=== PATIENT | male | born 1980 | race Caucasian/White ===

== ENCOUNTER 2020-02-29 17:33 | Emergency (ER) | payer BC, OTHER, SELFPAY ==
--- NOTE | 2020-02-29 17:39 | ED.GENADULT ---
HPI - General Adult General Chief complaint: Upper Respiratory Infection Stated complaint: low energy Time Seen by Provider: 02/29/20 17:38 Source: patient Mode of arrival: ambulatory Limitations: no limitations History of Present Illness HPI narrative: 39-year-old male patient presents to the [facility] with complaints of extreme fatigue that started yesterday. Patient also complaining of some hot and cold chills along with some sinus pressure and congestion. Denies any fevers, body aches or chills. Denies any chest pain. Patient states she he has had mild shortness of breath. Denies any abdominal pain, nausea, vomiting or diarrhea. Patient unsure if he got a flu shot this year. Patient denies being around anyone with Covid that he is aware of. Related Data Home Medications Medication Instructions Recorded Confirmed fluoxetine [Prozac] 4 mg PO DAILY 03/18/19 03/18/19 buspirone 5 mg PO BID 02/29/20 02/29/20 Allergies Allergy/AdvReac Type Severity Reaction Status Date / Time No Known Allergies Allergy Mild Unverified 03/18/19 17:47 Review of Systems Review of Systems: Narrative: CONSTITUTIONAL: Denies fever, positive chills, and sweats. Positive fatigue EYES: Denies visual changes, redness, or discharge. ENT: Positive rhinorrhea, congestion, denies sore throat, or otalgia. CARDIOVASCULAR: Denies chest pain, palpitations, or edema. RESPIRATORY: Denies cough or dyspnea. GASTROINTESTINAL: Denies abdominal pain, nausea, vomiting, or diarrhea. GENITOURINARY: Denies dysuria or hematuria. SKIN: Denies rash or itching. MUSCULOSKELETAL: Denies back pain, joint pain, or myalgia. NEUROLOGIC: Denies headache, numbness, or weakness. PSYCHIATRIC: Denies anxiety or depression. [facility] Past Medical History Medical History Anxiety Depression GI bleed History of pneumonia Inguinal hernia PTSD (post-traumatic stress disorder) Surgical History Surgical History H/O inguinal hernia repair Social History Social History Smoking packs per day: 0.75 Smoking cigarettes per day: 15.0 Smoking status: Current every day smoker Tobacco type: cigarettes Comments At the time of my signature I agree with nursing past medical history, surgical, social, and family history. There is no relevant family history pertinent to the presenting complaint. Exam Narrative: Exam Narrative: GENERAL: Well-appearing, well-nourished, and in no acute distress. HEAD: Normocephalic, atraumatic. EYES: PERRLA and EOMI. ENT: Nares clear, no rhinorrhea or epistaxis. Mucous membranes moist. Posterior pharynx with no erythema, tonsillar Dulce Maria, exudates or lesions present. Bilateral TMs are clear no erythema or foreign bodies to the canal. NECK: Supple. No lymphadenopathy CHEST: Clear to auscultation. No respiratory distress. Patient able talk in clear complete sentences. No tripoding noted. HEART: Regular rate and rhythm. No murmur heard. Normal peripheral pulses. ABDOMEN: Soft, nontender, nondistended, normal active bowel sounds. EXTREMITIES: Normal range of motion. No edema. SKIN: Warm, dry, no rash. NEURO: No focal deficits. Alert and oriented x3. Course Reevaluation(s) Reevaluation #1: Reevaluated patient and notified him that his flu today is negative. Discussed with him that we sent the order for his Covid test over to the hospital that they should be in contact with him most likely sometime tomorrow to schedule this test. Discussed with him is very important to stay isolated until he receives his test result and is recommended by the CDC that you isolate for 10 days from the onset of symptoms regardless of negative or positive test results. Patient verbalized understanding denies any other questions or concerns at this time. Date: 02/29/20 Time: 18:20 Vital Signs Vital signs: V
[2020-02-29 17:42] VITALS: BP 153/106; PULSE 95; RESP 20; TEMP 36.6; O2SAT 98
[2020-02-29 18:24] VITALS: BP 131/81; PULSE 73; RESP 16; TEMP 37.2; O2SAT 100
== END 2020-02-29 18:26 | disposition home or self-care (01) ==
PROVIDERS: Emergency Provider Nurse Practitioner Family
DX: Z20.828 Contact with and (suspected) exposure to other viral communicable diseases (principal); R53.83 Other fatigue; F17.210 Nicotine dependence, cigarettes, uncomplicated; F41.9 Anxiety disorder, unspecified; F32.9 Major depressive disorder, single episode, unspecified
CPT/HCPCS: 87804; 99213; G0463

== ENCOUNTER 2020-03-01 08:18 | Outpatient (NON) | payer BC, OTHER, SELFPAY ==
[2020-03-01 18:19] LABS: SARS-CoV-2 RNA PCR Positive
== END 2020-03-01 08:19 ==
PROVIDERS: Visit Provider Nurse Practitioner Family
DX: U07.1 COVID-19 (principal)
CPT/HCPCS: 87635; C9803; U0003

== ENCOUNTER 2020-08-22 17:53 | Emergency (ER) | payer OTHER, SELFPAY ==
[2020-08-22 18:05] VITALS: BP 137/95; PULSE 99; RESP 18; TEMP 36.6; O2SAT 99
--- NOTE | 2020-08-22 18:17 | ECG_ITS ---
Measurements Intervals [place] Rate: 80 P: 47 [place]: 149 QRS: -11 QRSD: 94 T: 34 QT: 335 QTc: 389 Interpretive Statements SINUS RHYTHM POSSIBLE LEFT ATRIAL ENLARGEMENT BASELINE ARTIFACT- I, II, III, AVL, AVF BORDERLINE ECG Electronically Signed On 08-23-2020 8:13:54 CDT by Shimon Romero D.O.
--- NOTE | 2020-08-22 18:23 | ED.GENADULT ---
HPI - General Adult General Chief complaint: Unspecified Stated complaint: pain in rib Source: patient and RN notes reviewed Mode of arrival: ambulatory History of Present Illness HPI narrative: This is a 40-year-old male with a presented to urgent care with complaints of left side rib pain. According to patient he developed left-sided rib pain Saturday patient notes that he took over the counter pain medication with no relief. patient notes ever since he took the Pfizer vaccine 1 month ago he has been having a metallic taste in his mouth. He also notes that he has previously had covid back in February. Patient denies any trauma or injury to his left side. He notes the only thing that he did different was drive from here to [place] the day before he developed left rib pain. He noted he then went to sleep and woke up with left rib pain. Patient describes the pain as internal muscle tightness with occasional burning to his rib cage .the patient denies SOB, CP, palpitation, extremity numbness, lightheadedness, dizziness, constipation, diarrhea, chills, any radiating pain or fever. Related Data Allergies Allergy/AdvReac Type Severity Reaction Status Date / Time No Known Allergies Allergy Mild Verified 08/22/20 17:55 Review of Systems Review of Systems: Narrative: A 14 organ system Review of Systems was performed and pertinent positives included in the HPI, otherwise remaining ROS is negative. PMFSH Past Medical History Medical History Anxiety Depression GI bleed History of pneumonia Inguinal hernia PTSD (post-traumatic stress disorder) Surgical History Surgical History H/O inguinal hernia repair Social History Social History Smoking packs per day: 0.75 Smoking cigarettes per day: 15.0 Smoking status: Current every day smoker Tobacco type: cigarettes Gender identity (if verbalized by the patient): Male Exam Narrative: Exam Narrative: GENERAL: This is a well-nourished, well-developed patient, in no apparent distress. HEAD: normocephalic, atraumatic. EYES: PERRL. Sclera clear/white. Vision is grossly intact. EARS: External ears normal, auditory canals clear and without drainage, TMs normal without perforation. Hearing grossly intact. NOSE: External nose normal with no obvious nasal discharge, nares without redness, no rhinorrhea. THROAT: Mucous membranes moist, posterior pharynx clear. NECK: Neck supple, non-tender without lymphadenopathy, masses or thyromegaly. CARDIOVASCULAR: Regular rate and rhythm without murmurs, gallops, or rubs. RESPIRATORY: Clear to auscultation. Breath sounds equal bilaterally. No wheezes, rales, or rhonchi. GASTROINTESTINAL: Abdomen soft, non-tender, nondistended. Bowel sounds are active. No hepato-splenomegaly, or palpable masses. No guarding. SKIN: warm, intact with no suspicious lesions or rash, good texture and turgor. NEURO: awake, alert, and oriented to person, place and time. There were no obvious focal neurologic abnormalities. Steady gait EXTREMITIES: Normal range of motion. No edema. No calf tenderness. Negative Homans sign bilaterally. BACK: Nontender without deformity or crepitance. No flank tenderness. Course Course Emergency Course: Patient will receive [place] with Flexeril and diclofenac. Vital Signs Vital signs: Vital Signs Temperature 97.8 F 08/22/20 18:05 Pulse Rate 99 08/22/20 18:05 Respiratory Rate 18 08/22/20 18:05 Blood Pressure 137/95 H 08/22/20 18:05 Pulse Oximetry 99 08/22/20 18:05 Temperature 97.8 F 08/22/20 18:05 Pulse Rate 99 08/22/20 18:05 Respiratory Rate 18 08/22/20 18:05 Blood Pressure 137/95 H 08/22/20 18:05 Pulse Oximetry 99 08/22/20 18:05 Medical Decision Making Vital Signs Vital Signs: Vital Signs Temperature 97.8 F 08/22/20 18:05 Pulse Ra
== END 2020-08-22 18:24 | disposition home or self-care (01) ==
PROVIDERS: Emergency Provider Nurse Practitioner
DX: S23.41XA Sprain of ribs, initial encounter (principal); S29.019A Strain of muscle and tendon of unspecified wall of thorax, initial encounter; X58.XXXA Exposure to other specified factors, initial encounter; F17.210 Nicotine dependence, cigarettes, uncomplicated; F41.9 Anxiety disorder, unspecified
CPT/HCPCS: 93005; 99213; G0463

== ENCOUNTER 2020-08-24 22:07 | Emergency (ER) | payer OTHER, BC, SELFPAY ==
--- NOTE | ~2020-08-24 | CT_ITS ---
EXAMINATION: CT abdomen pelvis w con DATE: 08/24/2020 23:55 INDICATION: Left lower quadrant abdominal pain radiating to back TECHNIQUE: Computed tomography (CT) of the abdomen and pelvis was performed with 100 cc Omnipaque 350 intravenous contrast. Automated exposure control and iterative reconstruction technique were employe d. Exam dose: 1534.40 mGy-cm total exam DLP. COMPARISON: None. FINDINGS: There are scattered reticular and groundglass infiltrates and/atelectasis in the lower lung zones, left greater than right, which may be infectious. Normal heart size. No pericardial or pleural effusion. The liver, gallbladder, bile ducts, spleen, pancreas and pancreatic duct are unremarkable. Normal morphology of the adrenal glands. No renal mass lesion. No urinary tract calculus or hydroureteronephrosis. Normal caliber of the abdominal aorta. No intraperitoneal or retroperitoneal or pelvic mass lesion or adenopathy or ascites. Small fat-containing right inguinal hernia. No fat-containing left inguinal hernia. The urinary bladder and prostate gland appear unremarkable. Normal appendix. No bowel obstruction or bowel wall thickening, pneumatosis or intraperitoneal free a ir. Small fat-containing inguinal hernia. Included skeletal structures are unremarkable. IMPRESSION: Bilateral lower lung infiltrates, left greater than right; consider pneumonia Small fat-containing right inguinal hernia Reviewed, dictated and finalized at [facility]. Reviewed, dictated and finalized at [facility]. IMPRESSION: Bilateral lower lung infiltrates, left greater than right; conside r pneumonia Small fat-containing right inguinal hernia
[2020-08-24 22:15] VITALS: BP 131/96; PULSE 87; RESP 14; TEMP 36.8; O2SAT 98
--- NOTE | 2020-08-24 22:21 | ECG_ITS ---
Measurements Intervals [place] Rate: 82 P: 34 NE: 145 QRS: -3 QRSD: 88 T: 1 QT: 343 QTc: 403 Interpretive Statements SINUS RHYTHM CONSIDER INFERIOR INFARCT, AGE INDETERMINATE ABNORMAL ECG Electronically Signed On 08-25-2020 9:47:15 CDT by Shimon Romero D.O.
[2020-08-24 22:36] LABS: Basophils Percent Auto 0.4 % (0.2-1.2); Eosinophils Absolute Auto 0.2 K/mm3 (0-0.3); Eosinophils Percent Auto 2.6 % (0-4.4); Hematocrit 46.7 % (42.0-52.0); Hemoglobin 16.1 g/dL (14.0-18.0); Immature Granulocyte Absolute 0.03 K/mm3 (0.00-0.031); Immature Granulocyte Percent A 0.4 % (0-0.5); Lymphocytes Absolute Auto 2.26 K/mm3 (0.9-3.2); Lymphocytes Percent Auto 31.1 % (18.3-44.2); Mean Corpuscular HGB Conc 34.5 g/dl (32-36); Mean Corpuscular Hemoglobin 30.8 pg (26-34); Mean Corpuscular Volume 89.5 fl (80-100); Mean Platelet Volume 10.9 fl (7.4-10.4); Monocytes Absolute Auto 0.3 K/mm3 (0.1-0.6); Monocytes Percent Auto 4.7 % (2.6-8.5); Neutrophils Absolute Auto 4.4 K/mm3 (1.3-6.7); Neutrophils Percent Auto 60.8 % (45.5-73.1); Platelet Count Result 190 k/mm3 (150-375); Red Blood Count 5.22 M/mm3 (4.6-6.20); Red Cell Distribution Width 12.9 % (11.5-14.5); White Blood Count 7.3 K/mm3 (4.5-10.0)
[2020-08-24 22:48] LABS: Alanine Aminotransferase 44 U/L (4-50); Albumin Level 4.8 g/dL (3.5-5.1); Alkaline Phosphatase 45 U/L (38-126); Anion Gap 10 mmol/L (8-16); Aspartate Amino Transferase 38 U/L (17-59); Bilirubin,Total 0.3 mg/dL (0.2-1.3); Blood Urea Nitrogen 12 mg/dL (9-20); Calcium 9.5 mg/dL (8.4-10.2); Carbon Dioxide 29 mmol/L (22-30); Chloride 101 mmol/L (98-107); Estimated CRCL calculation 107 ml/min; Estimated Glomerular Filt Rate > 60; Glucose 100 mg/dL (75-110); Lipase 34 U/L (23-300); Potassium 3.8 mmol/L (3.4-5.0); Sodium 140 mmol/L (137-145)
[2020-08-24 23:00] LABS: Troponin I < 0.012 ng/mL (0.000-0.034)
[2020-08-24 23:27] LABS: Add Urine Microscopic? YES; Appearance Urine Clear (Clear); Bacteria Urine Trace /hpf; Bilirubin Urine Negative (Negative); Blood Urine 2+ (Negative); Color Urine Yellow (Yellow); Glucose Urine UA Negative (Negative); Ketones Urine Negative (Negative); Leukocyte Esterase Ur Negative LEU/UL (Negative); Mucus Urine Few /lpf; Nitrate Urine Negative (Negative); Protein Urine 1+ mg/dL (Negative); Specific Grav Ur 1.023 (1.001-1.035); Urobilinogen Urine Negative mg/dL (<2.0); WBC Urine 0-3 /hpf
--- NOTE | 2020-08-25 00:37 | ED.ABDPAIN ---
HPI - Abdominal Pain General Chief Complaint: Abdominal Pain Stated Complaint: swelling and burning under rib cag Time Seen by Provider: 08/24/20 22:53 Source: patient Mode of arrival: ambulatory Limitations: no limitations History of Present Illness HPI narrative: 40-year-old with a history of anxiety, depression here with complaints of left upper quadrant pain since last 1 day. Patient states that he feels like a mass in the left upper abdomen. He denies any nausea or vomiting. No history of fever or chills. No history of trauma. MD elicited complaint: abdominal pain Pertinent past history: none Onset (ago): day(s) (1) Pain Consistency: constant Location: [facility] Related Data Allergies Allergy/AdvReac Type Severity Reaction Status Date / Time No Known Allergies Allergy Mild Verified 08/22/20 17:55 Review of Systems Review of Systems: All systems reviewed & are unremarkable except as noted in HPI and below Constitutional: Constitutional: Reports no additional constitutional complaints Eyes: Eyes: Reports no additional eye complaints ENT: Reports system reviewed and no additional complaints, except as documented Cardiovascular: Cardiovascular: Reports no additional cardiovascular complaints Respiratory: Respiratory: Reports no additional respiratory complaints Gastrointestinal: Gastrointestinal: Reports as per HPI Musculoskeletal: Musculoskeletal: Reports no additional musculoskeletal complaints PMFSH Past Medical History Medical History Anxiety Depression GI bleed History of pneumonia Inguinal hernia PTSD (post-traumatic stress disorder) Surgical History Surgical History H/O inguinal hernia repair Social History Social History Smoking packs per day: 0.75 Smoking cigarettes per day: 15.0 Smoking status: Current every day smoker Tobacco type: cigarettes Gender identity (if verbalized by the patient): Male Exam Narrative: Exam Narrative: GENERAL: Well-appearing, well-nourished, and in no acute distress. HEAD: Normocephalic, atraumatic. EYES: PERRLA and EOMI. NECK: Supple. CHEST: Clear to auscultation. No respiratory distress. HEART: Regular rate and rhythm. No murmur heard. Normal peripheral pulses. ABDOMEN: Soft, nontender, nondistended, normal active bowel sounds. EXTREMITIES: Normal range of motion. No edema. SKIN: Warm, dry, no rash. NEURO: No focal deficits. Alert and oriented x3. PSYCH: Normal mood and affect. Course Course Emergency Course: Patient presently in no distress. I discussed all the lab work, CT findings with the patient and family. Vital Signs Vital signs: Vital Signs Temperature 36.8 C 08/24/20 22:15 Pulse Rate 87 08/24/20 22:15 Respiratory Rate 14 08/24/20 22:15 Blood Pressure 131/96 H 08/24/20 22:15 Pulse Oximetry 98 08/24/20 22:15 Temperature 36.8 C 08/24/20 22:15 Pulse Rate 87 08/24/20 22:15 Respiratory Rate 14 08/24/20 22:15 Blood Pressure 131/96 H 08/24/20 22:15 Pulse Oximetry 98 08/24/20 22:15 MDM - Abdominal Pain Differential Diagnosis Differential diagnosis: Likely abdominal pain, constipation, diverticulitis and small bowel obstruction Lab Data Result diagrams: 08/24/20 22:27 08/24/20 22:27 Labs: Lab Results 08/24/20 08/24/20 08/24/20 Range/Units 22:27 22:27 23:15 WBC 7.3 (4.5-10.0) K/mm3 RBC 5.22 (4.6-6.20) M/mm3 Hgb 16.1 (14.0-18.0) g/dL Hct 46.7 (42.0-52.0) % MCV 89.5 (80-100) fl MCH 30.8 (26-34) pg MCHC 34.5 (32-36) g/dl RDW 12.9 (11.5-14.5) % Plt Count 190 (150-375) k/mm3 MPV 10.9 H (7.4-10.4) fl Immature Gran % (Auto) 0.4 (0-0.5) % Neut % (Auto) 60.8 (45.5-73.1) % Lymph % (Auto) 31.1 (18.3-44.2) % [place] % (Auto) 4.7 (2.6-8.5) % Eos % (Auto
[2020-08-25 00:43] VITALS: BP 128/89; PULSE 78; RESP 16; O2SAT 98
== END 2020-08-25 00:43 | disposition home or self-care (01) ==
PROVIDERS: Emergency Provider Family Medicine
DX: R10.12 Left upper quadrant pain (principal); F17.210 Nicotine dependence, cigarettes, uncomplicated; R94.31 Abnormal electrocardiogram [ECG] [EKG]
CPT/HCPCS: 36415; 74177; 80053; 81001; 83690; 84484; 85025; 93005; 99284; Q9967

== ENCOUNTER 2020-08-29 10:58 | Emergency (ER) | payer OTHER, BC, SELFPAY ==
[2020-08-29 11:16] VITALS: BP 137/99; PULSE 113; RESP 18; TEMP 36.3; O2SAT 99
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
== END 2020-08-29 11:57 | disposition home or self-care (01) ==
PROVIDERS: Emergency Provider Nurse Practitioner
DX: B02.9 Zoster without complications (principal); F17.210 Nicotine dependence, cigarettes, uncomplicated
CPT/HCPCS: 99213; G0463

== ENCOUNTER 2020-12-20 16:03 | Emergency (ER) | payer OTHER, BC, SELFPAY ==
[2020-12-20 16:22] VITALS: BP 133/99; PULSE 95; RESP 18; TEMP 36.8; O2SAT 99
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
== END 2020-12-20 16:50 | disposition left against medical advice (07) ==
PROVIDERS: Emergency Provider Nurse Practitioner Family
DX: S09.90XA Unspecified injury of head, initial encounter (principal); V43.52XA Car driver injured in collision with other type car in traffic accident, initial encounter; F17.210 Nicotine dependence, cigarettes, uncomplicated; F41.9 Anxiety disorder, unspecified; F32.9 Major depressive disorder, single episode, unspecified; F43.10 Post-traumatic stress disorder, unspecified
CPT/HCPCS: 99212; G0463

== ENCOUNTER 2021-08-30 12:41 | Emergency (ER) | payer BC, SELFPAY ==
[2021-08-30 12:45] VITALS: BP 126/98; PULSE 85; RESP 16; TEMP 36.8; O2SAT 98
--- NOTE | 2021-08-30 13:07 | ED.URI ---
HPI - URI/Sore Throat General Chief Complaint: Upper Respiratory Infection Stated Complaint: Congestion,Throat Irritation Time Seen by Provider: 08/30/21 13:07 History of Present Illness HPI Narrative: Jayce Shoemaker is a 41 yo male with a PMH of depression and PTSD comes to express care with 3 days of cough and congestion with sore throat x3 days. He has been vaccinated for COVID has had COVID and thinks he has just a bad summer cold Related Data Allergies Allergy/AdvReac Type Severity Reaction Status Date / Time No Known Allergies Allergy Mild Verified 08/30/21 12:46 Review of Systems Review of Systems: CONSTITUTIONAL: Denies fever, chills, sweats. EYES: Denies visual changes, redness, discharge. ENT: Has rhinorrhea, has congestion, has sore throat, otalgia. CARDIOVASCULAR: Denies chest pain, palpitations, edema. RESPIRATORY: Denies dyspnea, wheezing, cough GASTROINTESTINAL: Denies abdominal pain, nausea, vomiting, diarrhea. GENITOURINARY: Denies dysuria, hematuria, abnormal discharge SKIN: Denies rash or itching. NEUROLOGIC: Denies numbness, or focal weakness. PSYCHIATRIC: Denies anxiety or depression. PMFSH Past Medical History Medical History Anxiety Depression GI bleed History of pneumonia Inguinal hernia PTSD (post-traumatic stress disorder) Surgical History Surgical History H/O inguinal hernia repair Social History Social History Smoking packs per day: 0.75 Smoking cigarettes per day: 15.0 Smoking status: Current every day smoker Tobacco type: cigarettes Gender identity (if verbalized by the patient): Male Comments At time of signature, I agree with nursing past medical, surgical, social and family history. There is no relevant family history pertinent to the presenting complaint. Exam Narrative: GENERAL: This is a well-nourished, well-developed patient, in mild distress. HEAD: normocephalic, atraumatic. EYES: Sclera clear/white. Vision is grossly intact. EARS: External ears normal, auditory canals erythema and without drainage, fluid behind TMs. Hearing grossly intact. NOSE: External nose normal without nasal discharge, nares without redness, has rhinorrhea. THROAT: Mucous membranes moist, posterior pharynx erythema with no exudate NECK: Neck supple, non-tender CARDIOVASCULAR: Regular rate and rhythm without murmurs, gallops, or rubs. RESPIRATORY: Clear to auscultation. Breath sounds equal bilaterally. No wheezes, rales, or rhonchi. GASTROINTESTINAL not done SKIN: warm, intact with no suspicious lesions or rash, good texture and turgor. NEURO: awake, alert, and oriented to person, place and time. There were no obvious focal neurologic abnormalities. Steady gait EXTREMITIES: Normal range of motion. BACK: Nontender without deformity Course Course Emergency Course: Patient comes with complaints of cough upper respiratory symptoms of sinus congestion coughing at night, states he has been taking Mucinex but symptoms have not improved also has sore throat Strep test done which was negative Started on steroids, Tesmoyon Jazes, should continue with Mucinex and take Zyrtec in the morning Level of Care: Express Care Visit Vital Signs Vital signs: Vital Signs Temperature 98.3 F 08/30/21 12:45 Pulse Rate 85 08/30/21 12:45 Respiratory Rate 16 08/30/21 12:45 Blood Pressure 126/98 H 08/30/21 12:45 Pulse Oximetry 98 08/30/21 12:45 Oxygen Delivery Room Air 08/30/21 12:45 Temperature 98.3 F 08/30/21 12:45 Pulse Rate 85 08/30/21 12:45 Respiratory Rate 16 08/30/21 12:45 Blood Pressure 126/98 H 08/30/21 12:45 Pulse Oximetry 98 08/30/21 12:45 Oxygen Delivery Room Air 08/30/21 12:45 MDM - URI/Sore Throat Differential Diagnosis Differential diagnosis: Likely upper respiratory infection,
== END 2021-08-30 13:27 | disposition home or self-care (01) ==
PROVIDERS: Emergency Provider Nurse Practitioner
DX: J06.9 Acute upper respiratory infection, unspecified (principal); F17.210 Nicotine dependence, cigarettes, uncomplicated
CPT/HCPCS: 87081; 87880; 99213; G0463

== ENCOUNTER 2022-03-14 17:15 | Emergency (ER) | payer OTHER, BC, SELFPAY ==
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
[2022-03-14 17:34] VITALS: BP 150/113; PULSE 92; RESP 20; TEMP 36.9; O2SAT 99
== END 2022-03-14 18:04 | disposition home or self-care (01) ==
PROVIDERS: Emergency Provider Nurse Practitioner
DX: M54.9 Dorsalgia, unspecified (principal); V44.5XXA Car driver injured in collision with heavy transport vehicle or bus in traffic accident, initial encounter; F17.210 Nicotine dependence, cigarettes, uncomplicated
CPT/HCPCS: 99213; G0463

== ENCOUNTER 2024-12-05 19:15 | Emergency (ER) | payer OTHER, SELFPAY ==
[2024-12-05 19:26] VITALS: BP 151/104; PULSE 87; RESP 18; TEMP 36.7; O2SAT 98
--- NOTE | 2024-12-05 20:00 | ED.EXTPRO ---
HPI - Extremity Problem General Chief complaint: Extremity Injury, Upper Stated complaint: R pain in hand that goes up to arm Time Seen by Provider: 12/05/24 19:35 Source: patient Mode of arrival: ambulatory Limitations: no limitations History of Present Illness HPI Narrative: Jayce is a 44-year-old male patient presenting to the clinic today with complaints of right wrist/hand pain x3 days. He reports pain originates in the wrist and radiates up the arm. States it is an achy pain. Rates his pain a 4-6/10. Has been taking ibuprofen for the pain without much relief. Denies any injury of the left hand or wrist. Denies any repetitive motions of the left hand or wrist. Patient is currently retired. History bulging disc and cervical spine. Has a neck implant to C3. Denies any neck injury or pain currently. Related Data Home Medications ?Medication ?Instructions ?Recorded ?Confirmed ?Last Taken ?Type duloxetine 60 mg capsule,delayed mg PO 12/05/24 Unknown History release fluoxetine 10 mg capsule mg 12/05/24 Unknown History quetiapine 100 mg tablet mg 12/05/24 Unknown History Allergies Allergy/AdvReac Type Severity Reaction Status Date / Time No Known Allergies Allergy Mild Verified 03/14/22 17:29 Review of Systems Review of Systems: Pertinent positives per HPI. Patient denies any fever, chills, rash, headache, visual changes, dizziness, cough, runny nose, sore throat, shortness of breath, chest pain, palpitations, nausea, vomiting, diarrhea, constipation, abdominal pain, or any urinary issues. [facility] Past Medical History Medical History History of pneumonia PTSD (post-traumatic stress disorder) Anxiety Depression Inguinal hernia GI bleed Surgical History Surgical History H/O inguinal hernia repair Social History Social History Smoking packs per day: 0.75 Smoking cigarettes per day: 15.0 Smoking status: Current every day smoker Tobacco type: cigarettes Gender identity (if verbalized by the patient): Male Comments At the time of my signature, I reviewed and agree with the nursing past medical, surgical, social, and family history. There is no relevant family history pertinent to the patient complaint. Exam Narrative: General: Well-developed, well nourished, in no apparent distress Head: Normocephalic, atraumatic. Cardio: Regular rate and rhythm, s1 and s2 normal, no murmur appreciated. Resp: Clear to auscultation bilaterally, no rhonchi, rales, wheezing or rubs. Musculoskeletal: No deformity, tender to palpation over the right palm/hand/wrist, positive Phalen's test, negative Tinel's test, negative Padma test, grossly normal range of motion, hand strength strong and equal, peripheral pulse strong, no edema, no cyanosis, normal gait and station Course Course Emergency Course: Portions of this record may have been created with voice recognition software. Level of Care: Express Care Visit Vital Signs Vital signs: Vital Signs Temperature 36.7 C 12/05/24 19:26 Pulse Rate 87 12/05/24 19:26 Respiratory Rate 18 12/05/24 19:26 Blood Pressure 151/104 H 12/05/24 19:26 Pulse Oximetry 98 12/05/24 19:26 Oxygen Delivery Room Air 12/05/24 19:26 Temperature 36.7 C 12/05/24 19:26 Pulse Rate 87 12/05/24 19:26 Respiratory Rate 18 12/05/24 19:26 Blood Pressure 151/104 H 12/05/24 19:26 Pulse Oximetry 98 12/05/24 19:26 Oxygen Delivery Room Air 12/05/24 19:26 Vital signs reviewed MDM - Extremity (Nontraumatic) MDM Narrative Medical decision making narrative: At the time of visit patient is resting comfortably on the exam table. Patient appears to be nontoxic. Complaints of right wrist/hand pain x3 days. He reports pain originates in the wrist and radiates up the arm. States it is an achy pain. Rates his pain a 4-6/10. Has been taking ibuprofen for the pain without much relief. Denies any injury of the left hand or wrist. Denies any repetitive motions of the left hand or wrist. Patient is currently retired. History bulging disc and cervical spine. Has a neck implant to C3. Denies any neck injury or pain currently. On exam tender to palpation over the right palm/hand/wrist, positive Phalen's test, negative Tinel's test, negative Padma test, grossly normal range of motion, hand strength strong and equal, peripheral pulse strong Plan: I suspect patient has wrist tendinitis but cannot rule out carpal tunnel syndrome. Recommend follow-up with PCP with referral to Neurology for EMG study. Will send in prescription for Medrol Dosepak at this time Supportive measures were discussed with the patient and they voiced understanding discharge instructions and agrees to treatment plan. Return precautions reviewed Differential Diagnosis Differential diagnosis: Likely other (Wrist tendinitis, carpal tunnel syndrome, cervical radiculopathy, wrist sprain , hand sprain) Discharge Plan Discharge Clinical Impression: Right wrist tendonitis Patient Disposition: Home Condition: Stable Instructions: Antibiotic Form, Tendinitis (ED) Additional Instructions: Take Medrol Dosepak as prescribed Wear a cock-up wrist splint-may purchase this from [employer], or [employer]. May use heat or ice to the affected area May use blue emu, lidocaine patches, or asper cream to affected area- do not apply heat or ice directly over cream- can cause burn. Follow up with your PCP in 3-5 days if symptom persist. May need referral to have an EMG study done to rule out carpal tunnel syndrome Patient Language: Russian Prescriptions: New methylprednisolone [Medrol (Demario)] 4 mg tablets,dose pack See Rx Instructions PO .COMPLEX Qty: 21 0RF Rx Instructions: orally per package directions No Action cyclobenzaprine 10 mg tablet 10 mg PO TID PRN (Reason: muscle spasm) Qty: 20 0RF ibuprofen 800 mg tablet 800 mg PO Q6H PRN (Reason: pain) Qty: 30 0RF quetiapine 100 mg tablet fluoxetine 10 mg capsule duloxetine 60 mg capsule,delayed release(DR/EC) PO Follow-up/Referrals: PHYSICIAN,NAIL ASSEMBLY MACHINE OPERATOR [Primary Care Provider, Internal Medicine] Time of Disposition: 19:58 Quality NIHSS Nursing Documentation ED NIHSS nursing documentation: reviewed/agree
== END 2024-12-05 20:00 | disposition home or self-care (01) ==
PROVIDERS: Emergency Provider Nurse Practitioner Family
DX: M67.833 Other specified disorders of tendon, right wrist (principal); F17.210 Nicotine dependence, cigarettes, uncomplicated; F41.9 Anxiety disorder, unspecified; F32.A Depression, unspecified
CPT/HCPCS: 99213; G0463